=== PATIENT | male | born 1945 | race Caucasian/White ===

== ENCOUNTER → 2019-11-02 | Outpatient (CLI) | payer OTHER, MEDICARE | LOC: SJCVCIMAG 08:55 | PROVIDERS: ATTEND Internal Medicine | DX: I08.2 Rheumatic disorders of both aortic and tricuspid valves (principal); I11.9 Hypertensive heart disease without heart failure; E78.5 Hyperlipidemia, unspecified; K21.9 Gastro-esophageal reflux disease without esophagitis; Z79.899 Other long term (current) drug therapy; Z87.891 Personal history of nicotine dependence ==

== ENCOUNTER → 2020-11-07 | Outpatient (CLI) | payer OTHER, MEDICARE | LOC: SJCVCIMAG 07:44 | PROVIDERS: ATTEND Internal Medicine | DX: I08.0 Rheumatic disorders of both mitral and aortic valves (principal); I10 Essential (primary) hypertension; C64.1 Malignant neoplasm of right kidney, except renal pelvis; N40.0 Benign prostatic hyperplasia without lower urinary tract symptoms; K21.9 Gastro-esophageal reflux disease without esophagitis; R06.02 Shortness of breath; E78.5 Hyperlipidemia, unspecified; Z79.899 Other long term (current) drug therapy; Z88.0 Allergy status to penicillin; Z88.8 Allergy status to other drugs, medicaments and biological substances; Z72.89 Other problems related to lifestyle; Z87.891 Personal history of nicotine dependence ==

== ENCOUNTER → 2020-11-14 | Outpatient (CLI) | payer OTHER, MEDICARE | LOC: SJCVC 13:26 | PROVIDERS: ATTEND Internal Medicine | DX: I35.0 Nonrheumatic aortic (valve) stenosis (principal); I10 Essential (primary) hypertension; E78.5 Hyperlipidemia, unspecified; C64.1 Malignant neoplasm of right kidney, except renal pelvis; K21.9 Gastro-esophageal reflux disease without esophagitis; Z72.89 Other problems related to lifestyle; Z79.899 Other long term (current) drug therapy; Z87.891 Personal history of nicotine dependence ==

== ENCOUNTER → 2020-11-22 | Outpatient (CLI) | payer OTHER, MEDICARE ==
[~2020-11-22] VITALS: Ht 172.7 cm; Wt 98.0 kg
[~2020-11-22] MED LIST: AMBIEN 10 MG TA10 MG PO; DUTASTERIDE0.5 MG PO; NORVASC5 MG PO; PROTONIX40 M2 PO
[2020-11-22 07:45] LABS: HEMATOCRIT 42.9 % (42.0-52.0); HEMOGLOBIN 14.3 gm/dL (14.0-18.0); MCH 29.8 pg (26.0-34.0); MCHC 33.3 g/dL (28.0-37.0); MCV 89.6 fL (80.0-100.0); RBC 4.79 mil/uL (4.50-6.00); RDW 13.2 % (10.5-14.5); WBC 7.9 thou/uL (4.0-11.0)
[2020-11-22 07:54] LABS: CALCIUM 8.9 mg/dL (8.5-10.1); CREATININE 1.4 mg/dL (0.7-1.3); POTASSIUM 4.4 mmol/L (3.5-5.1)
[2020-11-22 07:58] VITALS: BP 154/86
--- NOTE | 2020-11-22 09:08 | TEE ---
[facility] [address] [place] [address] TRANSESOPHAGEAL ECHOCARDIOGRAM Name: MARVEL DORSEY Room #: REG [facility]#: [id number] Admission: 11/22/20 Attend Phys: Nicolas Lizarraga MD, Discharge: Date of : 49 Report #: [id number] THIS REPORT FOR: cc: Ramakrishna Zhao Jeffrey J. DO Lundgren, Craig H. MD [facility] ~ APPROVED REPORT Study performed: 11/22/2020 07:44:24 EXAM: Transesophageal Echocardiogram with Doppler Patient Location: Out-Patient Room #: 9 Status: routine BSA: 2.12 HR: 98 bpm BP: 154/86 mmHg Rhythm: NSR Other Information Study Quality: Good Indications Aortic Valve Disease Echo Enhancing Agent Indication: Rule out Shunt Agent(s) / Amount(s) Used: Agitated Saline 7 cc Procedure After obtaining informed consent, patient underwent transesophageal echo in the [facility]. Type of Sedation : Conscious Sedation Sedation was administered by Nurse. Sedation start time: 804 Case end Time: 812 Sedation was achieved intravenously with: Versed (5mg) Fentanyl (100mcg) Transesophageal probe was inserted and advanced into esophagus without difficulty by Nicolas Lizarraga MD. Echo enhancement indication: R/O Septal defect. Echo enhancement agent administered: Agitated Saline The RADHA was performed without complications. Throughout the procedure, the blood pressure, pulse oximetry, cardiac rhythm, and rate were monitored. [facility] [address] [place] [address] TRANSESOPHAGEAL ECHOCARDIOGRAM Name: MARVEL DORSEY Room #: REG CL [facility]#: [id number] Admission: 11/22/20 Attend Phys: Nicolas Lizarraga, Discharge: Date of : 49 Report #: [id number] The patient tolerated the procedure without adverse effects. Recovery from conscious sedation was uneventful and vital signs were stable. Left Ventricle The left ventricle is normal size. There is normal LV segmental wall motion. Mild concentric left ventricular hypertrophy. The left ventricular systolic function is normal. The left ventricular ejection fraction is within the normal range. LVEF is 55-60%. Right Ventricle The right ventricle is normal size. The right ventricular systolic function is normal. Atria Left atrium is dilated. No thrombus is visualized in the left atrium or appendage. No shunting by contrast bubble injection. Atrial septal aneurysm Right atrium is dilated. Aortic Valve Aortic valve is calcified, trileaflet. (Transthoracic gradients peak 63 mm, mean 42 mmHg) Mild aortic regurgitation. Severe aortic stenosis. Mitral Valve The mitral valve is normal in structure. Trace mitral regurgitation. No evidence of mitral valve stenosis. Tricuspid Valve The tricuspid valve is normal in structure. Trace tricuspid regurgitation. Pulmonic Valve The pulmonary valve is normal in structure. There is no pulmonic valvular regurgitation. Great Vessels The aortic root is normal in size. The ascending aorta is normal in size. IVC is normal in size and collapses >50% with inspiration. Pericardium There is no pericardial effusion. <Conclusion> The left ventricular systolic function is normal. [facility] [address] [place] [address] TRANSESOPHAGEAL ECHOCARDIOGRAM Name: MARVEL DORSEY Room #: REG [facility]#: [id number] Admission: 11/22/20 Attend Phys: Nicolas Lizarraga, Discharge: Date of : 49 Report #: [id number] There is normal LV segmental wall motion. LVEF is 55-60%. Mild concentric left ventricular hypertrophy. Left atrium is dilated. No thrombus is visualized in the left atrium or appendage. No shunting by contrast bubble injection. Atrial septal aneurysm Aortic valve is calcified, trileaflet. (Transthoracic gradients peak 63 mm, mean 42 mmHg) Severe aortic stenosis. Mild insufficiency The mitral valve is normal in structure. Trace mitral regurgitation. No pericardial effusion. <ELECTRONICALLY SIGNED> By: Nicolas Lizarraga MD, FACC 11/22/20907 7 7 Nicolas Lizarraga MD, FACC /INF
--- NOTE | 2020-11-22 11:11 | CATHLAB ---
[facility] [place] [address] INVASIVE PROCEDURE REPORT Name: MARVEL DORSEY Room #: REG [facility].#: [id number] Admission: 11/22/20 Attend Phys: Nicolas Lizarraga MD, Discharge: Date of : 49 Report #: [id number] THIS REPORT FOR: cc: Ramakrishna Zhao Jeffrey J. DO Lundgren, Craig H. MD [facility] ~ APPROVED REPORT Study performed: 11/22/2020 09:29:20 Patient Details Patient Status: Out-Patient Room #: The patient is a 75 year-old male Event Personnel Nicolas Lizarraga [employer] Operator, Boubacar Moore RN RN, Elif Fernandez RTR, Sepideh Dodge Ja'net RTR Monitor Procedures Performed Left Heart Cath w/or w/o Coronaries [id number] [facility] Art Access - R femoral artery* 37621 Initial Mod Sed Same Phys/QHP Gr5y 119800 SUPERVALVULAR AORTOGRAPHY INJECTION Indication Chest pain Procedure Narrative The Right Groin^ was infiltrated with 1% Lidocaine subcutaneous anesthesia. A PINNACLE 6FR Sheath #[id number] sheath was inserted into the RFA^. Coronary angiography was performed using coronary diagnostic catheters. The right coronary system was accessed and visualized with a JR4 catheter. The left coronary system was accessed and visualized with a JL4 catheter. Closure device was deployed with a Fr MYNXGRIP 6/7F #[id number]. The patient tolerated the procedure well and there were no complications associated with the procedure. There was no hematoma. Intraoperative Conscious Sedation Sedation start time: 9:53 Case end Time: 10:26 Fentanyl 50 mcg Versed 1 mg Fluoro Time: 2.08 minutes [facility] [place] [address] INVASIVE PROCEDURE REPORT Name: MARVEL DORSEY Room #: REG [facility]#: [id number] Admission: 11/22/20 Attend Phys: Nicolas Lizarraga, Discharge: Date of : 49 Report #: [id number] Dose: DAP 9963.90 cGycm2 1251 mGy Contrast Type and Amount: Visipaque 140 ml Coronary Angiography The patient's coronary anatomy is left dominant. [place] Artery Percent Stenosis Supravalvular aortography demonstrated a calcified and stenotic, trileaflet aortic valve. No aneurysmal dilatation of the aorta. Mild aortic insufficiency. Diagnostic Cath Left Main Normal left main LAD Mild 10-20% plaquing of the proximal portions of the LAD Circumflex Dominant circumflex OM1 Large OM1, normal OM2 Small second marginal branch, normal L PDA 40-50% proximal PDA stenosis L JANNA Normal posterior lateral branch Right Coronary Small nondominant right coronary, normal Ramus Large ramus branch with mild proximal plaquing Hemodynamics The aortic pressure is 157/82 mmHg with a mean of 125 mmHg. Conclusion 1. Severe, trileaflet calcific aortic stenosis 2. Normal ascending aorta. Mild aortic insufficiency 3. Normal left main 4. Mild scattered nonocclusive plaquing. Left coronary dominant circulation <ELECTRONICALLY SIGNED> By: Nicolas Lizarraga MD, FACC 11/22/20 1111 1111 1111 Nicolas Lizarraga MD, FACC /INF
== END | disposition home or self-care (01) ==
LOC: CATH 07:29
PROVIDERS: ATTEND Internal Medicine
DX: R07.9 Chest pain, unspecified (principal); I25.10 Atherosclerotic heart disease of native coronary artery without angina pectoris; I08.1 Rheumatic disorders of both mitral and tricuspid valves; I10 Essential (primary) hypertension; E78.5 Hyperlipidemia, unspecified; K21.9 Gastro-esophageal reflux disease without esophagitis; Z98.890 Other specified postprocedural states; Z79.899 Other long term (current) drug therapy; Z87.891 Personal history of nicotine dependence; Z98.52 Vasectomy status; Z90.49 Acquired absence of other specified parts of digestive tract; Z85.528 Personal history of other malignant neoplasm of kidney